=== PATIENT | female | born 1990 | race Caucasian/White ===

== ENCOUNTER 2018-08-16 17:46 | Inpatient (IN) | payer SELFPAY ==
[~2018-08-16] VITALS: Ht 175.3 cm; Wt 120.8 kg
[2018-08-16] MEDS ORDERED: RINGERS SOLUTION,LACTATED 1,000 ML IV PRN (18:43)
[2018-08-16] MEDS ORDERED: METOCLOPRAMIDE HCL 5 MG/ML 2 ML VIAL IVP PRN (18:45)
[2018-08-16] MEDS ORDERED: CITRIC ACID/SODIUM CITRATE 30 ML SOLUTION UDCUP PO PRN (18:45)
[2018-08-16] MEDS ORDERED: OXYTOCIN 30 UNITS/LACT RINGERS 500 ML IV ONE (18:57)
[2018-08-16] MEDS: RINGERS SOLUTION,LACTATED 1,000 ML IV SCH ×2 (19:00→21:44)
[2018-08-16] MEDS ORDERED: AMPICILLIN SODIUM 2 GM/NS 100 ML IV ONE (19:00)
[2018-08-16 19:19] LABS: BASOPHILS % (AUTO) 0.5 % (0.0-2.0); EOSINOPHILS % (AUTO) 0.1 % (1.0-6.0); HEMATOCRIT 34.6 % (36-46); HEMOGLOBIN 11.4 g/dL (12.0-16.0); LYMPHOCYTES # (AUTO) 1.6 K/uL (1.0-4.8); LYMPHOCYTES % (AUTO) 12.2 % (22.0-44.0); MEAN CORPUSCULAR HEMOGLOBIN 28.1 pg (26.0-34.0); MEAN CORPUSCULAR VOLUME 85 fL (80-100); MONOCYTES # (AUTO) 0.5 K/uL (0.1-1.0); MONOCYTES % (AUTO) 3.8 % (2.0-9.0); NEUTROPHILS # (AUTO) 10.6 K/uL (1.8-7.7); NEUTROPHILS % (AUTO) 83.4 % (40.0-70.0); PLATELET COUNT (AUTO)-OB 224 K/uL (150-450); RED BLOOD CELL COUNT(AUTO) 4.07 MIL/uL (4.00-5.20); RED CELL DISTRIBUTION WIDTH 14.4 % (11.5-14.5)
[2018-08-16] MEDS ORDERED: ROPIVACAINE HCL/PF 0.2% 100 ML ED ONE (19:28)
[2018-08-16] MEDS ORDERED: ONDANSETRON HCL 4 MG/2 ML VIAL IVP PRN (20:00)
[2018-08-16] MEDS ORDERED: OXYGEN THERAPY IH SCH (20:00)
[2018-08-16] MEDS ORDERED: ROPIVACAINE HCL/PF 0.2% 100 ML ED PRN (20:00)
[2018-08-16] MEDS ORDERED: DiphenhydrAMINE HCL 50 MG/ML VIAL IVP PRN (20:00)
[2018-08-16] MEDS ORDERED: LIDOCAINE/PF 2% 5 ML VIAL ONE ×2 (20:05→21:23)
[2018-08-16] MEDS ORDERED: FentaNYL CITRATE-PF 100 MCG/2 ML VIAL ONE ×2 (20:05→21:23)
[2018-08-16 20:49] VITALS: BP 117/67
[2018-08-16] MEDS ORDERED: BUPIVACAINE HCL/PF 0.25% 10 ML VIAL ONE (21:23)
[2018-08-16] MEDS ORDERED: LIDOCAINE/PF 1% 30 ML VIAL INJ PRN (21:30)
[2018-08-16] MEDS ORDERED: LANOLIN 7 GM OINTMENT TP PRN (22:30)
[2018-08-16] MEDS ORDERED: GLYCERIN/WITCH HAZEL LEAF 40 PADS JAR TP PRN (22:30)
[2018-08-16] MEDS ORDERED: BENZOCAINE 20%/MENTHOL 56 GM SPRAY CANISTER TP PRN (22:30)
[2018-08-16] MEDS ORDERED: ACETAMINOPHEN/CODEINE 300-30 MG TABLET PO PRN ×2 (22:30)
[2018-08-16] MEDS: IBUPROFEN 800 MG TABLET PO SCH (23:06)
[2018-08-16 23:12] LABS: RUBELLA SCREEN (IGG) IMMUNE (IMMUNE)
[2018-08-16] MEDS ORDERED: METHYLERGONOVINE MALEATE 0.2 MG/ML VIAL IM PRN (23:45)
[2018-08-16] MEDS ORDERED: MISOPROSTOL 100 MCG TABLET PR ONE (23:45)
[2018-08-17] MEDS: IBUPROFEN 800 MG TABLET PO SCH ×3 (05:27→21:17)
[2018-08-17] MEDS: MAGNESIUM HYDROXIDE SUSPENSION 30 ML UDCUP PO SCH ×2 (08:13→21:17)
[2018-08-18] MEDS: IBUPROFEN 800 MG TABLET PO SCH (04:00)
[2018-08-18] MEDS ORDERED: IBUP-2071 PO (09:38)
== END 2018-08-18 11:10 | disposition home or self-care (01) | DRG 807 ==
LOC: 4S 17:46 → OBSVTOIN 17:46
PROVIDERS: ADMIT Obstetrics & Gynecology; ATTEND Obstetrics & Gynecology
PROC: 10E0XZZ Delivery of Products of Conception, External Approach (ICD-10-PCS; principal; 2018-08-16)
PROC: 0UQMXZZ Repair Vulva, External Approach (ICD-10-PCS; 2018-08-16)
PROC: 3E0R3BZ Introduction of Anesthetic Agent into Spinal Canal, Percutaneous Approach (ICD-10-PCS; 2018-08-16)
PROC: 00HU33Z Insertion of Infusion Device into Spinal Canal, Percutaneous Approach (ICD-10-PCS; 2018-08-16)
DX: O71.82 Other specified trauma to perineum and vulva (principal); Z37.0 Single live birth; Z3A.35 35 weeks gestation of pregnancy
CPT/HCPCS: 80307; 80349; 86592; 86762; 86850; 86900; 86901; 87340; J0290; J2210; J2590; J2795; J3010; J3490; J7120